=== PATIENT | female | born 1990 | race Caucasian/White ===

== ENCOUNTER 2016-07-14 15:35 | Emergency (ER) | payer MEDICAID ==
[2016-07-14 15:50] VITALS: BP 139/86
--- NOTE | 2016-07-14 17:03 | UC ---
Respiratory Complaint HPI - HPI Summary HPI Summary: 26 yo female with a <48 hour hx of f/c, cough.sore throat and runny nose feel sob no CP has belt like her heart is racing myalgias started today - History of Current Complaint Chief Complaint: UCRespiratory Stated Complaint: FEVER, SOB Time Seen by Provider: 07/14/16 16:12 Hx Obtained From: Patient Hx Last Menstrual Period: had her tubes tied in May; no period yet Onset/Duration: Gradual Onset, Lasting Days Timing: Constant Severity Initially: Moderate Severity Currently: Moderate Pain Intensity: 4 Pain Scale Used: 0-10 Numeric Character: Cough: Nonproductive Aggravating Factors: Nothing Alleviating Factors: Nothing Associated Signs And Symptoms: Positive: Dyspnea, Fever, Chills, Nasal Congestion - Allergies/Home Medications Allergies/Adverse Reactions: Allergies Allergy/AdvReac Type Severity Reaction Status Date / Time Latex Allergy Mild Rash Verified 01/23/15 09:20 PMH/Surg Hx/FS Hx/Imm Hx Previously Healthy: Yes Endocrine History Of: Denies: Diabetes, Thyroid Disease Cardiovascular History Of: Denies: Cardiac Disorders, Hypertension Respiratory History Of: Denies: COPD, Asthma GI/ History Of: Denies: Ulcer Psychological History Of: Comment Only: Anxiety - pt states her mom thinks she is anxious Other History Of: Hepatitis C - Surgical History Surgical History: None Surgery Procedure, Year, and Place: tubal ligation in May - Family History Known Family History: Negative: Cardiac Disease, Hypertension, Diabetes - Social History Alcohol Use: None Substance Use Type: None Smoking Status (MU): Light Every Day Tobacco Smoker Type: Cigarettes Amount Used/How Often: 1/2 ppd Have You Smoked in the Last Year: Yes Household Exposure Type: Cigarettes - Immunization History Most Recent Influenza Vaccination: none Most Recent Tetanus Shot: 10/02/2012 Review of Systems Constitutional: Fever, Chills Skin: Negative Eyes: Negative ENT: Nasal Discharge Respiratory: Shortness Of Breath, Cough Cardiovascular: Negative Gastrointestinal: Negative Genitourinary: Negative Motor: Negative Neurovascular: Negative Musculoskeletal: Myalgia Neurological: Negative Psychological: Negative All Other Systems Reviewed And Are Negative: Yes Physical Exam Triage Information Reviewed: Yes Appearance: Well-Appearing, No Pain Distress, Well-Nourished Vital Signs: Initial Vital Signs Temp 100.1 F 07/14/16 15:43 Pulse 102 07/14/16 15:43 Resp 18 07/14/16 15:43 BP 139/86 07/14/16 15:43 Pulse Ox 100 07/14/16 15:43 Vital Signs Reviewed: Yes Eyes: Positive: Conjunctiva Clear ENT: Positive: Hearing grossly normal, Nasal congestion, Nasal drainage, Tonsillar swelling. Negative: Tonsillar exudate, Trismus, Muffled/hoarse voice Neck: Positive: Supple, Nontender, No Lymphadenopathy Respiratory: Positive: Chest non-tender, Lungs clear, Normal breath sounds, No respiratory distress, No accessory muscle use Cardiovascular: Positive: RRR, No Murmur, Tachycardia Abdomen Description: Positive: Nontender, No Organomegaly, Soft Musculoskeletal: Positive: Strength Intact, ROM Intact Neurological: Positive: Alert Psychological: Positive: Normal Response To Family Skin Exam: Normal UC Diagnostic Evaluation - Laboratory O2 Sat by Pulse Oximetry: 100 - normal/not hypoxic - EKG Cardiac Rate: NL Cardiac Rhythm: Sinus: Normal - short IA, no delta waves Ectopy: None ST Segment: Normal Respiratory Course/Dx - Differential Dx/Diagnosis Provider Diagnoses: influenza Discharge - Discharge Plan Condition: Stable Disposition: HOME Prescriptions: Oseltamivir CAP* [Tamiflu CAP*] 75 mg PO BID #10 cap Patient Education Materials: Influenza (ED) Referrals: No Primary Care Phys,NOPCP [Primary Care Provider] - Additional Instructions: recheck in 4-5 days if not better rest fluids
== END 2016-07-14 17:10 | disposition home or self-care (01) ==
LOC: UCEAST 15:35
DX: J11.1 Influenza due to unidentified influenza virus with other respiratory manifestations (principal); F17.210 Nicotine dependence, cigarettes, uncomplicated
CPT/HCPCS: 87502; 93005; 99212; G0463

== ENCOUNTER 2016-11-20 09:17 | Observation (INO) | payer MEDICAID, OTHER ==
[2016-11-20] MEDS ORDERED: NS 0.9% 1000 ML* 1,000 ML IV ONE ×2 (09:47→17:19)
[2016-11-20 11:46] LABS: Hematocrit 42 % (35-47); Hemoglobin 13.4 g/dl (12.0-16.0); Mean Corpuscular HGB Conc 32 g/dl (31-36); Mean Corpuscular Hemoglobin 28 pg (27-31); Mean Corpuscular Volume 88 fL (80-97); Mean Platelet Volume 10 um3 (7.4-10.4); Red Blood Count 4.75 10^6/ul (4.0-5.4); Red Cell Distribution Width 13 % (10.5-15); White Blood Count 8.9 10^3/ul (3.5-10.8)
[2016-11-20 12:05] LABS: BUN/Creatinine Ratio 21.1 (8-20); Calcium 10.7 mg/dL (8.6-10.3); EGFR African American 98.1 (>60); EGFR Non-African American 76.3 (>60); Globulin 3.8 g/dL (2-4); Magnesium 2.4 mg/dL (1.9-2.7); Potassium 3.3 mmol/L (3.5-5.0); Total Bilirubin 1.8 mg/dL (0.2-1.0); Total Protein 8.8 g/dL (6.4-8.9)
[2016-11-20 12:07] LABS: Troponin I 0.01 ng/mL (<0.04)
[2016-11-20] MEDS ORDERED: diPHENhydraMINE IV* 50 MG/ML 1 ml VIAL (BENADRYL) IV ONE (14:12)
[2016-11-20] MEDS ORDERED: LORazepam INJ* 2 MG/ML 1 ML VIAL IV PUSH ONE (14:12)
[2016-11-20] MEDS ORDERED: Haloperidol INJ IV/IM* 5 MG/ML AMP IV SLOW PU ONE (14:41)
--- NOTE | 2016-11-20 16:43 | ED ---
Substance Abuse/Use - HPI Summary HPI Summary: Patient presents to ED with . states she has been hallucinating and acting strangely for a few days. Both are homeless. She denies drug use to myself, but admits heroin and meth to the RN. She is currently on suboxone. She has multiple injection wounds, which she states she is not sure where they are from. Multiple abrasions and superficial lacerations to the legs and arms. Right eye injected, but denies blurry vision or double vision or pain. She denies urinary symptoms, chest pain, SOB or other symptoms. feels she is dehydrated as they have been living in tents and do not have a lot of access to clean water. PMHx includes drug abuse and anemia. Denies fevers, chills or sweats. - History Of Current Complaint Chief Complaint: EDAltMentalStatus Stated Complaint: HOMELESS, VOMITING, TIRED Time Seen by Provider: 11/20/16 09:25 Hx Obtained From: Family/[employer] Hx From Patient Unobtainable Due To: Altered Mental Status Hx Last Menstrual Period: had her tubes tied in May; no period yet ?: No Onset/Duration of Drug/ETOH Abuse: Minutes - unknown exact duration Ingestion History: Type/Name Of Drug - heroin, meth Overdose Characteristics: Oral, IV Timing Of Abuse: Daily - unknown Severity Initially: Moderate Severity Currently: Moderate Character: Anxious, Angry, Other - hallucinating, anxious Aggravating Factor(s): Nothing Alleviating Factor(s): Nothing Associated Signs And Symptoms: Hostile, Hallucinating, Paranoid Behavior, Sleep Disturbance, Appetite Change, Social Withdrawal, Altered Mental Status Related Hx: Possible Multi Drug Ingestion, Prior Drug Abuse Counseling/Admission - Risk Factor(s) Completed Suicide Risk Factors: [place] - Allergies/Home Medications Allergies/Adverse Reactions: Allergies Allergy/AdvReac Type Severity Reaction Status Date / Time Latex Allergy Mild Rash Verified 01/23/15 09:20 PMH/Surg Hx/FS Hx/Imm Hx Previously Healthy: Yes Endocrine/Hematology History: Denies: Hx Diabetes, Hx Thyroid Disease Cardiovascular History: Denies: Hx Hypertension Respiratory History: Denies: Hx Asthma, Hx Chronic Obstructive Pulmonary Disease (COPD) GI History: Denies: Hx Ulcer Psychiatric History: Comment Only: Hx Anxiety - pt states her mom thinks she is anxious - Cancer History Cancer Type, Location and Year: none - Surgical History Surgery Procedure, Year, and Place: tubal ligation in May - Immunization History Date of Tetanus Vaccine: unknown Hx Pertussis Vaccination: No Immunizations Up to Date: Unable to Obtain/Confirm Infectious Disease History: No Infectious Disease History: Reports: Hx Hepatitis - Hep C Denies: Hx Clostridium Difficile, Hx Human Immunodeficiency Virus (HIV), Hx of Known/Suspected MRSA, Hx Shingles, Hx Tuberculosis, Hx Known/Suspected VRE, Hx Known/Suspected VRSA, History Other Infectious Disease, Traveled Outside the [place] in Last 30 Days - Family History Known Family History: Negative: Cardiac Disease, Hypertension, Diabetes - Social History Occupation: Unemployed Lives: With Family - homeless Alcohol Use: None Hx Substance Use: No Substance Use Type: Reports: Heroin, Prescribed Substance Use Comment - Amount & Last Used: per patient she hasn't used heroin in 2 months and is on suboxone Smoking Status (MU): Light Every Day Tobacco Smoker Type: Cigarettes Amount Used/How Often: 1/2 ppd Have You Smoked in the Last Year: Yes Review of Systems Constitutional: Negative Eyes: Negative ENT: Negative Respiratory: Negative Gastrointestinal: Negative Positive: no symptoms reported, see HPI Skin: Negative Neurological: Negative Positive: Anxious, Depressed All Other Systems Reviewed And Are Negative: Yes Physical Exam Triage Information Reviewed: Yes Vital Signs On Initial Exam: Initial Vitals Temp Pulse Resp BP Pulse Ox 98.8 F 86 16 131/79 97 11/20/16 09:18 11/20/16 09:18 11/20/16 09:18 11/20/16 09:18 11/20/16 09:18 Vital Signs Reviewed: Yes Appearance: Positive: Well-Appearing, Well-Nourished Skin: Positive: Warm, Skin Color Reflects Adequate Perfusion Head/Face: Positive: Normal Head/Face Inspection Eyes: Positive: EOMI, MICHELLE, Conjunctiva Clear Neck: Positive: Supple, Nontender, No Lymphadenopathy Respiratory/Lung Sounds: Positive: Clear to Auscultation Cardiovascular: Positive: RRR Musculoskeletal: Positive: Strength/ROM Intact Neurological: Positive: Speech Normal Psychiatric: Positive: Anxious, Patient Uncooperative for Exam AVPU Assessment: Alert - [place] Coma Scale Coma Scale Total: 15 Diagnostics - Vital Signs Vital Signs Temp Pulse Resp BP Pulse Ox 11/20/16 14:26 33 106/79 82 11/20/16 14:20 20 11/20/16 14:00 95 98 11/20/16 13:30 60 126/105 94 11/20/16 13:00 89 96 11/20/16 12:00 93 100 11/20/16 11:35 90 99 11/20/16 11:34 114/83 11/20/16 09:18 98.8 F 86 16 131/79 97 - Laboratory Lab Results: Lab Results 11/20/16 11/20/16 11/20/16 Range/Units 11:27 11:27 11:27 WBC 8.9 (3.5-10.8) 10^3/ul RBC 4.75 (4.0-5.4) 10^6/ul Hgb 13.4 (12.0-16.0) g/dl Hct 42 (35-47) % MCV 88 (80-97) fL MCH 28 (27-31) pg MCHC 32 (31-36) g/dl RDW 13 (10.5-15) % Plt Count 264 (150-450) 10^3/ul MPV 10 (7.4-10.4) um3 Neut % (Auto) 67.8 (38-83) % Lymph % (Auto) 20.9 L (25-47) % Ocean % (Auto) 9.9 H (1-9) % Eos % (Auto) 1.0 (0-6) % Baso % (Auto) 0.4 (0-2) % Absolute Neuts (auto) 6.1 (1.5-7.7) 10^3/ul Absolute Lymphs (auto) 1.9 (1.0-4.8) 10^3/ul Absolute Monos (auto) 0.9 H (0-0.8) 10^3/ul Absolute Eos (auto) 0.1 (0-0.6) 10^3/ul Absolute Basos (auto) 0 (0-0.2) 10^3/ul Absolute Nucleated RBC 0 10^3/ul Nucleated RBC % 0 Sodium 138 (133-145) mmol/L Potassium 3.3 L (3.5-5.0) mmol/L Chloride 101 (101-111) mmol/L Carbon Dioxide 26 (22-32) mmol/L Anion Gap 11 (2-11) mmol/L BUN 19 (6-24) mg/dL Creatinine 0.90 (0.51-0.95) mg/dL Est GFR ( Amer) 98.1 (>60) Est GFR (Non-Af Amer) 76.3 (>60) BUN/Creatinine Ratio 21.1 H (8-20) Glucose 72 (70-100) mg/dL Lactic Acid 1.2 (0.5-2.0) mmol/L Calcium 10.7 H (8.6-10.3) mg/dL Magnesium 2.4 (1.9-2.7) mg/dL Total Bilirubin 1.80 H (0.2-1.0) mg/dL AST 20 (13-39) U/L ALT 11 (7-52) U/L Alkaline Phosphatase 56 (34-104) U/L Total Creatine Kinase 203 (10-223) U/L Troponin I 0.01 (<0.04) ng/mL Total Protein 8.8 (6.4-8.9) g/dL Albumin 5.0 (3.2-5.2) g/dL Globulin 3.8 (2-4) g/dL Albumin/Globulin Ratio 1.3 (1-3) Result Diagrams: 11/20/16 11:27 11/20/16 11:27 Lab Statement: Any lab studies that have been ordered have been reviewed, and results considered in the medical decision making process. Course/Dx - Course Course Of Treatment: Labs WNL. patient is hallucinating, anxious and uncooperative. She is restless and continues to disregard orders. She is given haldol, benadryl and ativan with minimal relief. left patient at ED. No safe discharge at this point d/t behavior of AMS. Spoke with Dr. Saavedra at 4:30p who accepted patient to CDU. - Diagnoses Differential Diagnosis/HQI/PQRI: Positive: Alcohol Withdrawal, Anxiety, Drug Abuse, Drug Withdrawal Provider Diagnoses: Drug use Discharge - Discharge Plan Condition: Stable Disposition: ADMITTED TO [facility]
[2016-11-20] MEDS ORDERED: Haloperidol INJ IV/IM* 5 MG/ML AMP IV SLOW PU PRN (17:42)
[2016-11-20] MEDS ORDERED: Potassium Chlor TAB* 20 MEQ TAB.ER PO ONE (20:00)
[2016-11-20] MEDS: NS 0.9% 1000 ML* 1,000 ML IV SCH (21:01)
[2016-11-20 21:40] LABS: Urine Bacteria Absent (Absent); Urine Bilirubin Negative (Negative); Urine Glucose Negative (Negative); Urine Nitrite Negative (Negative)
[2016-11-20 21:45] LABS: Benzodiazepine Urine Screen None Detected (None Detect)
--- NOTE | 2016-11-21 05:14 | HP ---
HISTORY AND PHYSICAL: DATE OF ADMISSION: 11/20/16 PRIMARY CARE PHYSICIAN: Unknown. CHIEF COMPLAINT: Possible hallucinations. HISTORY OF PRESENT ILLNESS: Ms. Leone is a 26-year-old female with unknown past medical history, possible injection drug use, who was reportedly brought in to the hospital by her with complaints that she has been acting strangely and having hallucinations. The patient and her are both homeless. It is unclear if the patient has any medical problems or takes any medications regularly, although the patient does have Suboxone prescribed through [facility], the last of which was a 14-day supply, dispensed on 11/07/16. The patient's was present with the patient today; however, it seemed that the patient was hallucinating and acting agitated in the emergency department and at one point threw a cup of ice at him and he left. There is concern that the patient may have taken drugs today and the patient's mental status does not seem to be back at baseline and at this time there does not seem to be a safe discharge plan for her. Hospitalist service was consulted to observe the patient until a safe discharge plan could be figured out. PAST MEDICAL HISTORY: Unknown, although possible IV drug abuse and has a prescription for Suboxone. PAST SURGICAL HISTORY: Unknown. ALLERGIES: The patient has an allergy listed to LATEX. FAMILY HISTORY: Unable to obtain. REVIEW OF SYSTEMS: Unable to obtain. PHYSICAL EXAMINATION GENERAL: The patient is a young female, lying in bed, curled up in a position. Physical exam is difficult as the patient is constantly moving around pulling a blanket over her. VITAL SIGNS: On admission, temperature 98.8, heart rate of 86, respiratory rate of 16, O2 saturation 97% on room air, blood pressure 131/79. LUNGS: Clear to auscultation bilaterally. No wheezes, rales, or rhonchi. CARDIOVASCULAR: Regular rate and rhythm. S1 and S2 present. No murmurs, gallops, or rubs. SKIN: The patient has possible injection sites over her body with a lot of excoriations and abrasions on her upper and lower extremities. No cyanosis, clubbing, or edema. NEURO: The patient responds briefly to questions, seems inattentive, frequently fidgeting and scratching at herself. LABORATORY DATA AND DIAGNOSTIC STUDIES: White blood cell count of 8.9, hematocrit of 42, platelets 264. Sodium 138, potassium 3.3, chloride of 101, carbon dioxide 26, BUN 19, creatinine 0.9, glucose of 72. Lactic acid 1.2. Calcium of 10.7. Total bilirubin of 1.8, LFTs within normal limits. ASSESSMENT AND PLAN: Possible intoxication and hallucinations in a 26-year-old female with suspected past medical history of IV drug abuse, currently on Suboxone although unclear if she is compliant with this. 1. Intoxication. Unfortunately, nurses down in the emergency department are unable to obtain any urine from the patient so far. I do not think she would be compliant with catheterization. I will give her another liter of IV saline at this time, try to induce some urine output, so we can check drug screen and UA. I think she just may need some time for medications to clear out of her system. We will check an EKG to make sure there are not any concerning interval prolongation and we will observe her on the floor. I will write for some Haldol p.r.n. The patient did not seem to be hallucinating when I was evaluating her; however, she was not speaking much. If this behavior persists tomorrow, consider psych consult at that time. 2. DVT prophylaxis: The patient is at low risk. 3. Code status: The patient is a full code. TIME SPENT: Total time spent on this admission 40 minutes with over half the time spent [id number] with the patient in counseling and coordinating care. [id number]/CPS #: [id number] MTDD
[2016-11-21] MEDS: NS 0.9% 1000 ML* 1,000 ML IV SCH (06:06)
[2016-11-21 07:13] LABS: Albumin 3.1 g/dL (3.2-5.2); BUN/Creatinine Ratio 15.8 (8-20); Calcium 8.3 mg/dL (8.6-10.3); EGFR African American 119.3 (>60); EGFR Non-African American 92.7 (>60); Globulin 2.3 g/dL (2-4); Potassium 3.6 mmol/L (3.5-5.0); Total Bilirubin 1.2 mg/dL (0.2-1.0); Total Protein 5.4 g/dL (6.4-8.9)
[2016-11-21 07:48] VITALS: BP 97/49
--- NOTE | 2016-11-21 10:55 | PN ---
Subjective Date of Service: 11/21/16 Interval History: Ms. Leone states that she is feeling better today. She denies hallucinations. She denies other complaint including chest pain, SOB, nausea, or abdominal pain. Objective Active Medications: Haloperidol Lactate (Haldol Inj Iv/Im*) 5 mg IV SLOW PU Q6H PRN Sodium Chloride (Ns 0.9% 1000 Ml*) 1,000 mls @ 100 mls/hr IV PER RATE [facility] Vital Signs 11/20/16 11/20/16 11/20/16 18:15 19:16 19:17 Temperature 97.9 F 97.9 F 97.9 F Pulse Rate 81 71 71 Respiratory 16 14 14 Rate Blood Pressure 105/74 116/76 116/76 (mmHg) O2 Sat by Pulse 100 100 Oximetry 11/20/16 11/21/16 11/21/16 23:26 00:05 03:32 Temperature 98.2 F 98.0 F Pulse Rate 55 68 77 Respiratory 16 16 Rate Blood Pressure 94/52 108/48 109/70 (mmHg) O2 Sat by Pulse 100 100 Oximetry 11/21/16 07:29 Temperature 98.2 F Pulse Rate 66 Respiratory Rate Blood Pressure 97/49 (mmHg) O2 Sat by Pulse 100 Oximetry Oxygen Devices in Use Now: None Appearance: Female sitting up in bed in NAD Eyes: No Scleral Icterus Ears/Nose/Mouth/Throat: Mucous Membranes Moist Neck: NL Appearance and Movements; NL JVP Respiratory: Symmetrical Chest Expansion and Respiratory Effort, Clear to Auscultation Cardiovascular: NL Sounds; No Murmurs; No JVD, No Edema Abdominal: NL Sounds; No Tenderness; No Distention Lymphatic: No Cervical Adenopathy Extremities: No Edema Skin: - - Rash to right forearm with scattered vesicles Neurological: Alert and Oriented x 3, NL Muscle Strength and Tone Nutrition: Taking PO's Result Diagrams: 11/20/16 11:27 11/21/16 06:31 Additional Lab and Data: Lab Results 11/20/16 11/20/16 11/20/16 Range/Units 11:27 11:27 11:27 WBC 8.9 (3.5-10.8) 10^3/ul RBC 4.75 (4.0-5.4) 10^6/ul Hgb 13.4 (12.0-16.0) g/dl Hct 42 (35-47) % MCV 88 (80-97) fL MCH 28 (27-31) pg MCHC 32 (31-36) g/dl RDW 13 (10.5-15) % Plt Count 264 (150-450) 10^3/ul MPV 10 (7.4-10.4) um3 Neut % (Auto) 67.8 (38-83) % Lymph % (Auto) 20.9 L (25-47) % [place] % (Auto) 9.9 H (1-9) % Eos % (Auto) 1.0 (0-6) % Baso % (Auto) 0.4 (0-2) % Absolute Neuts (auto) 6.1 (1.5-7.7) 10^3/ul Absolute Lymphs (auto) 1.9 (1.0-4.8) 10^3/ul Absolute Monos (auto) 0.9 H (0-0.8) 10^3/ul Absolute Eos (auto) 0.1 (0-0.6) 10^3/ul Absolute Basos (auto) 0 (0-0.2) 10^3/ul Absolute Nucleated RBC 0 10^3/ul Nucleated RBC % 0 Sodium 138 (133-145) mmol/L Potassium 3.3 L (3.5-5.0) mmol/L Chloride 101 (101-111) mmol/L Carbon Dioxide 26 (22-32) mmol/L Anion Gap 11 (2-11) mmol/L BUN 19 (6-24) mg/dL Creatinine 0.90 (0.51-0.95) mg/dL Est GFR ( Amer) 98.1 (>60) Est GFR (Non-Af Amer) 76.3 (>60) BUN/Creatinine Ratio 21.1 H (8-20) Glucose 72 (70-100) mg/dL Lactic Acid 1.2 (0.5-2.0) mmol/L Calcium 10.7 H (8.6-10.3) mg/dL Magnesium 2.4 (1.9-2.7) mg/dL Total Bilirubin 1.80 H (0.2-1.0) mg/dL AST 20 (13-39) U/L ALT 11 (7-52) U/L Alkaline Phosphatase 56 (34-104) U/L Total Creatine Kinase 203 (10-223) U/L Troponin I 0.01 (<0.04) ng/mL Total Protein 8.8 (6.4-8.9) g/dL Albumin 5.0 (3.2-5.2) g/dL Globulin 3.8 (2-4) g/dL Albumin/Globulin Ratio 1.3 (1-3) Assess/Plan/Problems-Billing Assessment: Ms. Leone is a 26 yo female with history of drug abuse who was admitted on with paranoid delusions and hallucinations. - Patient Problems (1) Hallucinations Comment: - Resolved. - Suspect drug related, patient's tox screen positive for amphetamines and marijuana. Though patient denies. Status and Disposition: OBV. Discharge to home, patient is homeless and stays with her partner in a tent. Partner's mother to give her a ride.
--- NOTE | 2016-11-22 03:08 | DS ---
HOSPITAL MEDICINE DISCHARGE SUMMARY: DATE OF ADMISSION: 11/20/16 DATE OF DISCHARGE: 11/21/16 PRIMARY CARE PHYSICIAN: None. ATTENDING PHYSICIAN: Dr. Sheryl Stone * (dictation provided by Fatmata Morgan NP ). PRIMARY DIAGNOSIS: Hallucinations, suspect secondary to drug use. MEDICATIONS AT THE TIME OF DISCHARGE: Unknown, but question of history of prescription for Suboxone. HOSPITAL COURSE: Ms. Leone is a 26-year-old female with no known past medical history other than drug use, who presented to the hospital on 11/20/16 with concern for hallucinations and paranoid delusions. Please see the dictated H and P from Rob Saavedra MD for complete details. In brief, the patient was brought in by her , who stated that she had been acting strangely and having hallucinations. In the emergency room, it was suspected that this was related to her history of drug use, although the patient denied. Her urine toxicology screen was positive for amphetamines and marijuana. Ms. Leone was observed in the hospital overnight. This morning, she is feeling much better. She has no further hallucinations or delusions and her behavior is appropriate. In terms of her workup, her labs were essentially normal with normal white blood cell count, essentially normal electrolytes. Urinalysis is positive for 3+ leuk esterase, but no bacteria is present. I question whether or not this is a poor sample and it will be repeated prior to her leaving today. Ms. Leone is medically stable for discharge to home. If her UA remains positive, we can discharge her with a short course of antibiotic treatment for suspected UTI. DISPOSITION: To home. DIET: Regular. ACTIVITY: As tolerated. FOLLOWUP PLANS: Please follow up as needed with perhaps the [facility] or return to the emergency room for serious concerns. TIME SPENT: Approximately 60 minutes were spent on the discharge of this patient, more than half time spent with the patient at the bedside reviewing the events leading up to this hospitalization, performing the physical examination, and reviewing the plan of care. FATMATA MROGAN NP [id number]/[facility] #: [id number] MTDGreg
== END 2016-11-21 12:00 | disposition home or self-care (01) ==
LOC: ED 09:17 → MED 17:39
PROVIDERS: ADMIT Hospitalist; ATTEND Internal Medicine
DX: R44.3 Hallucinations, unspecified (principal); F11.20 Opioid dependence, uncomplicated; F15.20 Other stimulant dependence, uncomplicated; Z59.0 Homelessness; S40.812A Abrasion of left upper arm, initial encounter; S40.811A Abrasion of right upper arm, initial encounter; S80.812A Abrasion, left lower leg, initial encounter; S80.811A Abrasion, right lower leg, initial encounter; X58.XXXA Exposure to other specified factors, initial encounter; B19.20 Unspecified viral hepatitis C without hepatic coma; F17.210 Nicotine dependence, cigarettes, uncomplicated; R41.82 Altered mental status, unspecified
CPT/HCPCS: 36415; 80053; 80307; 81003; 81015; 82550; 83605; 83735; 84484; 85025; 87077; 87086; 96361; 96374; 96375; 99284; 99406; A9270-GY; G0378; J1200; J1630; J2060